=== PATIENT | female | born 1990 | race Hispanic/Latino ===

== ENCOUNTER 2022-11-09 05:41 | Inpatient (IN) | payer MEDICAID, OTHER, SELFPAY ==
[2022-11-09] MEDS ORDERED: Promethazine HCl 25 MG/ML VIAL IM PRN ×2 (06:16→11:00)
[2022-11-09] MEDS ORDERED: Tranexamic Acid 1,000 MG/10 ML VIAL IVP PRN (06:16)
[2022-11-09] MEDS ORDERED: Carboprost 250 MCG/ML AMP IM PRN (06:16)
[2022-11-09] MEDS ORDERED: hydrALAZINE 20 MG/ML VIAL SLOW IVP PRN (06:16)
[2022-11-09] MEDS ORDERED: Ondansetron PF 4 MG/2 ML Vial IVP PRN ×2 (06:16→11:00)
[2022-11-09] MEDS ORDERED: Misoprostol 200 MCG TAB PR PRN (06:16)
[2022-11-09] MEDS ORDERED: Methylergonovine 0.2 MG/ML VIAL IM PRN ×2 (06:16→11:00)
[2022-11-09] MEDS ORDERED: Lidocaine 1% (PF) 30 ML VIAL SC PRN (06:16)
[2022-11-09] MEDS ORDERED: Ibuprofen 800 MG TAB PO PRN (06:16)
[2022-11-09 06:26] VITALS: BMI 23.6
[2022-11-09] MEDS ORDERED: NS w/ Oxytocin 30 units 500 ML IV SCH ×2 (06:30)
[2022-11-09] MEDS ORDERED: Penicillin G Potassium 5 MILL.UNITS in Sodium Chloride 0.9% 100 ML IVPB SCH (06:30)
[2022-11-09 06:49] LABS: Hematocrit 36.7 % (34.9-44.5); Hemoglobin 11.8 g/dL (12.0-15.5); Mean Corpuscular HGB CONC 32.2 g/dL (32.0-36.0); Mean Corpuscular Hemoglobin 24.9 pg (27.0-33.0); Mean Corpuscular Volume 77.6 fl (81.6-98.3); Mean Platelet Volume 11.1 fl (7.4-10.4); Platelet Count 154 10x3/uL (150-450); RBC Distribution Width 13.9 % (11.5-14.5); Red Blood Cell (RBC) Count 4.73 10x6/uL (3.90-5.03); White Blood Cell (WBC) Count 11.9 10x3/uL (3.5-10.5)
[2022-11-09 06:55] LABS: Hep B Surf Ag - L&D Non-Reactive S/CO (NonReactive); Syphilis Antibody Nonreactive (Nonreactive)
[2022-11-09] MEDS ORDERED: Penicillin G 2.5 MILL.units 2.5 MILL.UNITS in Premix Bag 1 BAG IVPB SCH (10:30)
[2022-11-09] MEDS ORDERED: Misoprostol 200 MCG TAB VAG PRN (10:50)
[2022-11-09] MEDS ORDERED: Milk Of Magnesia 30 ML UDCUP PO PRN (11:00)
[2022-11-09] MEDS ORDERED: HYDROcodone/Acetaminophen 5/325 mg Tablet PO PRN ×2 (11:00)
[2022-11-09] MEDS ORDERED: Bisacodyl 10 MG SUPP PR PRN (11:00)
[2022-11-09] MEDS ORDERED: Sodium Chloride 0.9% 1,000 ML IV SCH (11:00)
[2022-11-09] MEDS ORDERED: Lanolin Ointment 7 GM TUBE TOP PRN (11:00)
[2022-11-09] MEDS ORDERED: Boostrix 0.5 ML (Tdap) VIAL (>/=7 yrs of age) IM SCH (11:00)
[2022-11-09] MEDS ORDERED: Benzocaine-Menthol 82.5 ML CAN TOP PRN (11:00)
[2022-11-09] MEDS ORDERED: Methylergonovine 0.2 MG TAB PO PRN (11:00)
[2022-11-09] MEDS ORDERED: hydrALAZINE 20 MG/ML VIAL SLOW IVP SCH (11:00)
[2022-11-09] MEDS: Ferrous Sulfate 325 MG TAB PO SCH (17:39)
[2022-11-09] MEDS: Ibuprofen 800 MG TAB PO SCH ×2 (17:39→21:58)
[2022-11-09] MEDS: Docusate Calcium (SURFAK) 240 MG CAP PO SCH (21:52)
[2022-11-10] MEDS: Ibuprofen 800 MG TAB PO SCH ×3 (07:48→21:25)
[2022-11-10] MEDS: Docusate Calcium (SURFAK) 240 MG CAP PO SCH ×2 (07:50→21:25)
[2022-11-10] MEDS: Ferrous Sulfate 325 MG TAB PO SCH ×2 (07:50→14:37)
[2022-11-10] MEDS: Prenatal Vitamin 1 TAB PO SCH (07:52)
[2022-11-11] MEDS: Ibuprofen 800 MG TAB PO SCH (06:20)
[2022-11-11 07:37] VITALS: BP 96/57; TEMP 98.3
[2022-11-11] MEDS: Prenatal Vitamin 1 TAB PO SCH (09:43)
[2022-11-11] MEDS: Docusate Calcium (SURFAK) 240 MG CAP PO SCH (09:43)
[2022-11-11] MEDS: Ferrous Sulfate 325 MG TAB PO SCH (10:10)
== END 2022-11-11 10:30 | disposition home or self-care (01) | DRG 807 ==
LOC: CSHLD/OP 05:41 → CSHLD 06:17 → CSHPP 17:20
PROVIDERS: ADMIT Family Medicine; ATTEND Family Medicine
PROC: 10E0XZZ Delivery of Products of Conception, External Approach (ICD-10-PCS; principal; 2022-11-09)
PROC: 0KQM0ZZ Repair Perineum Muscle, Open Approach (ICD-10-PCS; 2022-11-09)
PROC: 10907ZC Drainage of Amniotic Fluid, Therapeutic from Products of Conception, Via Natural or Artificial Opening (ICD-10-PCS; 2022-11-09)
PROC: 10H07YZ Insertion of Other Device into Products of Conception, Via Natural or Artificial Opening (ICD-10-PCS; 2022-11-09)
DX: O34.211 Maternal care for low transverse scar from previous cesarean delivery (principal); Z37.0 Single live birth; Z3A.37 37 weeks gestation of pregnancy; O70.1 Second degree perineal laceration during delivery
CPT/HCPCS: 85027; 86780; 86850; 86900; 86901; 87340; 99285; J2001; J2590

== ENCOUNTER 2024-11-22 02:58 | Inpatient (IN) | payer MEDICAID, OTHER ==
[2024-11-22 03:12] VITALS: BMI 23.6
[2024-11-22 03:55] LABS: Hematocrit 34.7 % (34.9-44.5); Hemoglobin 10.8 g/dL (12.0-15.5); Mean Corpuscular Hemoglobin 23.5 pg (27.0-33.0); Mean Corpuscular Volume 75.4 fL (81.6-98.3); Platelet Count 163 10x3/uL (150-450); Red Blood Cell (RBC) Count 4.60 10x6/uL (3.90-5.03); White Blood Cell (WBC) Count 11.41 10x3/uL (3.5-10.5)
[2024-11-22] MEDS ORDERED: Acetaminophen 500 MG TAB PO PRN (04:00)
[2024-11-22] MEDS ORDERED: Diphenoxylate HCl/Atropine Tablet PO PRN ×2 (04:00)
[2024-11-22] MEDS ORDERED: Oxytocin 30 units/NS 500 ML 500 ML IV SCH (04:00)
[2024-11-22] MEDS ORDERED: hydrALAZINE 20 MG/ML VIAL SLOW IVP PRN ×2 (04:00→10:23)
[2024-11-22] MEDS ORDERED: Carboprost 250 MCG/ML AMP IM PRN (04:00)
[2024-11-22] MEDS ORDERED: Ondansetron PF 4 MG/2 ML Vial IVP PRN ×3 (04:00→10:23)
[2024-11-22] MEDS ORDERED: Tranexamic Acid 1,000 MG/10 ML VIAL IVP PRN (04:00)
[2024-11-22] MEDS ORDERED: Methylergonovine 0.2 MG/ML VIAL IM PRN (04:00)
[2024-11-22] MEDS: fentaNYL/Ropivacaine Epidural 100 ML ONE (04:17)
[2024-11-22 04:22] LABS: Syphilis Antibody Index 0.07 S/CO (<1.00 Non-Reactive)
[2024-11-22 04:24] LABS: Hep B Surf Ag - L&D Non-Reactive S/CO (NonReactive)
[2024-11-22] MEDS ORDERED: Acetaminophen 325 MG TAB PO PRN (04:41)
[2024-11-22] MEDS ORDERED: diphenhydrAMINE 50 MG/ML VIAL IVP PRN (04:41)
[2024-11-22] MEDS ORDERED: fentaNYL 2 mcg/Ropivacaine 0.2% Epidural 100 ML CADD EPIDURAL SCH (04:45)
[2024-11-22] MEDS ORDERED: Communication Order-Pharmacy FS SCH (04:45)
[2024-11-22] MEDS ORDERED: Bisacodyl 10 MG SUPP PR PRN (10:23)
[2024-11-22] MEDS ORDERED: diphenhydrAMINE 25 MG CAP PO PRN (10:23)
[2024-11-22] MEDS ORDERED: Milk Of Magnesia 30 ML UDCUP PO PRN (10:23)
[2024-11-22] MEDS ORDERED: HYDROcodone/Acetaminophen 5/325 mg Tablet PO PRN (10:23)
[2024-11-22] MEDS ORDERED: Benzocaine-Menthol 82.5 ML CAN TOP PRN (10:23)
[2024-11-22] MEDS ORDERED: Lanolin Ointment 7 GM TUBE TOP PRN (10:23)
[2024-11-22] MEDS: Ibuprofen 800 MG TAB PO SCH (12:58)
[2024-11-22] MEDS: Ferrous Sulfate 325 MG TAB PO SCH (16:19)
[2024-11-22] MEDS: Boostrix 0.5 ML (Tdap) VIAL (>/=7 yrs of age) IM ONE (17:03)
[2024-11-23 10:00] VITALS: BP 101/58; TEMP 98.6
== END 2024-11-23 16:20 | disposition home or self-care (01) | DRG 807 ==
LOC: CSHLD/OP 02:58 → CSHLD 03:29 → CSHPP 09:02
PROVIDERS: ADMIT Family Medicine; ATTEND Family Medicine
PROC: 10E0XZZ Delivery of Products of Conception, External Approach (ICD-10-PCS; principal; 2024-11-22)
DX: O34.219 Maternal care for unspecified type scar from previous cesarean delivery (principal); Z37.0 Single live birth; Z3A.38 38 weeks gestation of pregnancy; Z79.899 Other long term (current) drug therapy
CPT/HCPCS: 51702; 85027; 86780; 86850; 86900; 86901; 87340; 99285